=== PATIENT | female | born 1960 | race Caucasian/White ===

== ENCOUNTER 2017-05-02 20:48 | Emergency (ER) | payer OTHER ==
[~2017-05-02] VITALS: Ht 165.1 cm; Wt 77.3 kg
[2017-05-02 20:57] VITALS: BP 116/84; PULSE 84; O2SAT 98
--- NOTE | 2017-05-02 22:54 | ED.REPORT ---
HPI-General Illness Date of Service May 02, 2017 ED Provider: Julio C Beach DO Pt is a 57 year old female with a history of hypothyroidism who presents to the ED for a needle stick injury to her left 1st finger prior to arrival. She is otherwise asymptomatic. She reports that her last tetanus shot was 1 year ago. Per pt, the needle stick was post-use on a pt. Nursing Notes Stated Complaint: NEEDLE STICK- L&I Chief Complaint: Post Exposure Body Fluids Nursing Notes Reviewed: Yes Allergies: Coded Allergies: No Known Allergies (Unverified , 05/02/17) General Time Seen by MD: 22:54 Chief Complaint Other (Needlestick) Hx Obtained From: Patient Arrived By: Walk-in Sudden in Onset?: Yes Onset Occurred: Just prior to arrival Symptom Duration: Since onset Caused by: Accidental Severity: Current: No pain currently Severity: Maximum: No pain Recent Healthcare: No recent doctor visit, No recent hospitalization Similar Sx Previous: No Past Medical History Past Medical History Hypothyroidism Past Surgical History Denies Smoking History Unknown if Ever Smoker Social History Denies Occupation Employee at [employer] Ambulatory Status Independent Review of Systems + Left 1st finger puncture Full Review of Systems Constitutional: Denies: Fever Respiratory: Denies: Non-productive cough, Shortness of breath Complete sys rev & neg: except as marked. Physical Exam Vital Signs Vital Signs Date Time Temp Pulse Resp B/P Pulse Ox O2 Delivery O2 Flow Rate FiO2 05/02/17 20:57 84 116/84 98 Room Air Initial VS: Reviewed Head / Eyes: Atraumatic, Normocephalic Neck: Full range of motion Extremities: Vascular intact, Neuro intact Skin: Warm, Dry, No cyanosis Neurologic: Alert, Oriented, Nonfocal Psychiatric: Mood/affect normal, Behavior normal General/Constitutional: Awake, Alert, No acute distress Wrist / Hand: Neurologic intact, Vascular intact Small puncture wound consistent with a needle stick. No signs of active infection. Interpretation & Diagnostics Lab Results Interpretation Test 05/02/17 21:23 Re-Eval/Medical Decision Med Decision/Clinical Course Source blood is HIV negative. Hepatitis panel is pending. We will refer to [email or web address]. After discussing with Sonali we have opted to forego HIV prophylaxis and I think this is appropriate. Source of Hx: Old records Time of Eval: 23:07 Re-Evaluation/Progress Note: Pt rechecked. Informed pt of plan for discharge. Pt understands and agrees with plan for discharge. F/U instructions and RTER warnings given. All questions addressed. Counseled Regarding: Diagnosis, Lab results, Need for follow-up, When/why to return to ED Discharge & Departure Primary Impression: Needle stick injury Encounter type: initial encounter Qualified Code: W27.3XXA - Contact with needle (sewing), initial encounter Disposition: Home Discharge Condition All VS Reviewed: Yes Condition: Stable Patient Instructions: Needle Stick Injuries (ED) Additional Instructions: Follow-up with the employee health nurse. Call for an appointment with the number given. The source blood is HIV negative. This makes this a very low risk injury. Read the aftercare instructions given. Return if any problems or any worsening symptoms. Referrals: Employee [facility] Carmen Mukherjee MD (PCP) Scribe Attestation Portions of this note were transcribed by Nova Pena. I, Dr. Beach personally performed the history, physical exam and medical decision-making; I reviewed and confirmed the accuracy of the information in the transcribed note. Signed by : Fer Tay, 05/02/17. copies to: Carmen Mukherjee MD, Todd P DO May 02, 2017 22:54 Nova Calles May 02, 2017 23:03
== END 2017-05-02 23:10 | disposition home or self-care (01) ==
LOC: SED 20:48
DX: S61.032A Puncture wound without foreign body of left thumb without damage to nail, initial encounter (principal); Z77.21 Contact with and (suspected) exposure to potentially hazardous body fluids; W46.0XXA Contact with hypodermic needle, initial encounter; Y93.89 Activity, other specified; Y99.0 Civilian activity done for income or pay; Y92.230 Patient room in hospital as the place of occurrence of the external cause; E03.9 Hypothyroidism, unspecified
CPT/HCPCS: 36415; 86706; 87340; 99283; G0433